=== PATIENT | female | born 1980 | race Caucasian/White ===

== ENCOUNTER 2023-11-05 15:55 | Outpatient (CLI) | payer BC, SELFPAY | END 2023-11-05 15:56 | disposition home or self-care (01) | LOC: NFLDUCREF 15:56 | PROVIDERS: PCP Family Medicine; Visit Provider Nurse Practitioner Family | DX: R19.7 Diarrhea, unspecified (principal); N91.2 Amenorrhea, unspecified | CPT/HCPCS: 84703 ==